=== PATIENT | male | born 1965 | race Caucasian/White ===

== ENCOUNTER 2025-02-13 09:36 | Outpatient (CLI) | payer BC, SELFPAY ==
--- OUTSIDE RECORDS SUMMARY | 2025-02-13 09:47 | XMS_ITS ---
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 If you have left the hospital and have any questions, please contact your primary care physician. Reason For Referral No Data Found Plan of Treatment US Echo With Color ([id number]) 09/24/2024 Encounters Encounter Diagnosis Start Date Code Code Sys tem Non-ST elevation (NSTEMI) myocardial infarction 2024 SNOMED-CT Personal Care Team Section
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
--- OUTSIDE RECORDS SUMMARY | 2025-02-13 09:48 | XMS_ITS ---
Author Organization Unknown Address [place], [place] [id number] Phone Care Team Providers Care Jar Filler Name Role Phone ARYAN GARCIA Attending Unavailable MATILDA JONES FIELD CHECKER Primary Unavailable Immunization Immunization Date Status Additional Notes Code Code System COVID-19, mRNA, LNP-S, PF, 1 00 mcg/0.5mL dose or 50 mcg/0.25mL dose 07/21/2021 Completed 207 CVX COVID-19, mRNA, LNP-S, PF, 1 00 mcg/0.5mL dose or 50 mcg/0.25mL dose 08/18/2021 Completed 207 CVX Social History Type Status Start Date End Date Code Code Syst em Smoking History Unknown if ever smoked [id number] Sex Male Hospital Discharge Instructions Should you have any questions prior to discharge, please contact a member of your healthcare team. If you have left the hospital and have any questions, please contact your primary care physician. Reason For Referral No Data Found Plan of Treatment US Echo With Color ([id number]) 09/24/2024 Encounters Encounter Diagnosis Start Date Code Code Sys tem Palpitations 08/17/2024 SNOMED-CT Personal Care Team Section
--- OUTSIDE RECORDS SUMMARY | 2025-02-13 09:48 | XMS_ITS ---
Author Organization Unknown Address [id number] [place] [phone] Phone Care Team Providers Care Psychologist Research Assistant Name Role Phone ARYAN GARCIA Attending Unavailable MATILDA JONES LEAD SUSTAINABILITY SPECIALIST Primary Unavailable Immunization Immunization Date Status Additional Notes Code Code System COVID-19, mRNA, LNP-S, PF, 1 00 mcg/0.5mL dose or 50 mcg/0.25mL dose 07/21/2021 Completed 207 CVX COVID-19, mRNA, LNP-S, PF, 1 00 mcg/0.5mL dose or 50 mcg/0.25mL dose 08/18/2021 Completed 207 CVX Results US ECHO W/ COLOR - Completed : 09/24/2024 08:56 LOINC: See Scanned Image Attachment for Report Dictated By: Trans Initials: BG Trans Date: 09/27/24 10:35 <<REPDIST>> Social History Type Status Start Date End Date Code Code Syst em Smoking History Unknown if ever smoked [id number] Sex Male Hospital Discharge Instructions Should you have any questions prior to discharge, please contact a member of your healthcare team. If you have left the hospital and have any questions, please contact your primary care physician. Reason For Referral No Data Found Plan of Treatment US Echo With Color ([id number]) 09/24/2024 Encounters Encounter Diagnosis Start Date Code Code Sys tem Abnormal electrocardiogram [ECG] [EKG] 09/24/2024 SNOMED-CT Personal Care Team Section Imaging Narrative Notes [facility] 09/27/2024 10:[address] [address] RADIOLOGY REPORT Patient Number: [id number] Patient Name: HALEY ASCENCIOA Type: O/P MR Number: [id number] : [id number] Age: 59 Sex: M Room #: Admit Date: 09/24/24 Discharge Date 09/24/24 Ordering Physician: ARYAN GARCIA Family Physician: MATILDA Ramirez Physician: X-Ray Number : [id number] US ECHO W/ COLOR [id number] COMPLETE:09/24/24 08:56 [facility] [id number] (REASON-ECHO COMPLTE: ABNORMAL EKG See Scanned Image Attachment for Report Dictated By: Trans Initials: Trans Date: 09/27/24 10:35 <<REPDIST>>
--- OUTSIDE RECORDS SUMMARY | 2025-02-13 09:48 | XMS_ITS ---
Author Organization Unknown Address [place], [place] [phone] Phone Care Team Providers Care Composition Tile Layer Name Role Phone ARYAN GARCIA Attending Unavailable MATILDA JONES RIGGING UP WORKER Primary Unavailable Immunization Immunization Date Status Additional Notes Code Code System COVID-19, mRNA, LNP-S, PF, 1 00 mcg/0.5mL dose or 50 mcg/0.25mL dose 07/21/2021 Completed 207 CVX COVID-19, mRNA, LNP-S, PF, 1 00 mcg/0.5mL dose or 50 mcg/0.25mL dose 08/18/2021 Completed 207 CVX Social History Type Status Start Date End Date Code Code Syst em Smoking History Unknown if ever smoked [id number] Sex Male Hospital Discharge Instructions Should you have any questions prior to discharge, please contact a member of your healthcare team. If you have left the hospital and have any questions, please contact your primary care physician. Reason For Referral No Data Found Plan of Treatment US Echo With Color ([id number]) 09/24/2024 Encounters Encounter Diagnosis Start Date Code Code Sys tem Abnormal electrocardiogram [ECG] [EKG] 09/17/2024 SNOMED-CT Personal Care Team Section
[2025-02-13 09:53] LABS: Hematocrit 50.4 % (40.0-54.0); Hemoglobin 15.9 g/dL (14.0-18.0); Immature Granulocyte Percent A 0.2 % (0.0-0.0); Lymphocytes Absolute Auto 2.06 K/mm3 (1.10-4.50); Mean Corpuscular HGB Conc 31.5 g/dL (32-36); Mean Corpuscular Hemoglobin 29.2 pg (27.0-31.0); Mean Corpuscular Volume 92.5 fL (78.0-102.0); Nucleated Red Blood Cells Absolute Auto 0.00 K/mm3 (0.00-0.00); Nucleated Red Blood Cells Perc 0.0 % (0-0.0); Platelet Count Result 256 K/mm3 (150-420); Red Blood Count 5.45 M/mm3 (4.70-6.10); White Blood Count 8.5 K/mm3 (4.8-10.8)
[2025-02-13 10:30] LABS: Iron 170 ug/dL (49-181)
[2025-02-13 10:39] LABS: Percent Iron Saturation 45 % (20-50)
[2025-02-13 13:38] LABS: Ferritin 16.30 ng/mL (11.1-264)
== END 2025-02-13 09:37 | disposition home or self-care (01) ==
LOC: CHSLAB 09:43
PROVIDERS: PCP Registered Nurse; Visit Provider Internal Medicine Hematology
DX: D75.1 Secondary polycythemia (principal)
CPT/HCPCS: 36415; 82728; 83540; 83550; 85025